=== PATIENT | male | born 1965 | race Caucasian/White ===

== ENCOUNTER 2016-04-15 16:02 | Inpatient (IN) | payer OTHER ==
[~2016-04-15] VITALS: Ht 195.6 cm; Wt 163.5 kg
[2016-04-15 16:06] VITALS: BP 133/60; PULSE 83; RESP 20; TEMP 98.3; O2SAT 93
[2016-04-15] MEDS ORDERED: SODIUM CHLOR 0.9% 1000 ML INJ 1,000 ML IV ONE (16:15)
[2016-04-15] MEDS ORDERED: MORPHINE SULFATE 8 MG/ML INJ IV PUSH ONE (16:15)
[2016-04-15] MEDS ORDERED: LISI20TA3 PO (16:16)
[2016-04-15] MEDS ORDERED: METF1000 PO (16:16)
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
[2016-04-15 16:45] LABS: AUTOMATED NEUTROPHIL # 4.9 TH/MM3 (1.8-7.7); BASOPHIL % 0.3 % (0.0-2.0); EOSINOPHIL # 0.3 TH/MM3 (0-0.4); EOSINOPHIL % 2.4 % (0.0-4.0); HEMATOCRIT 38.8 % (39.0-51.0); HEMO FLAGS DIFF FINAL; LYMPH % 41.7 % (9.0-44.0); LYMPHOCYTE # 4.3 TH/MM3 (1.0-4.8); MEAN CELL VOLUME 83.7 FL (80.0-100.0); MEAN CORPUSCULAR HEMOGLOBIN 28.5 PG (27.0-34.0); MONO % 8.1 % (0.0-8.0); NEUT % 47.5 % (16.0-70.0); PLATELET COUNT 179 TH/MM3 (150-450); RED BLOOD COUNT 4.64 MIL/MM3 (4.50-5.90); RED CELL DISTRIBUTION WIDTH 15.1 % (11.6-17.2); WHITE BLOOD COUNT 10.4 TH/MM3 (4.0-11.0)
[2016-04-15] MEDS ORDERED: IOHEXOL 350 MG/ML 10 ML VIAL (for RAD DIAG) IV ONE (17:01)
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
[2016-04-15 17:23] LABS: BICARBONATE 28.7 MEQ/L (21.0-32.0); POTASSIUM 3.4 MEQ/L (3.5-5.1)
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
[2016-04-15] MEDS ORDERED: HYDROmorphone HCL PF 1 MG/ML VIAL IVS ONE (17:45)
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
[2016-04-15 18:42] VITALS: BP 126/58; PULSE 100; RESP 20; O2SAT 96
[2016-04-15] MEDS ORDERED: LIDOCAINE 1%/EPINEPHrine 1:100,000 SOLN 20 ML VIAL INFIL ONE (18:45)
--- NOTE | 2016-04-15 19:13 | PD ---
Physical Exam Narrative I was asked by Dr. San to repair patient's laceration. Please see his documentation for full H&P. Data Data Last Documented VS Vital Signs Date Time Temp Pulse Resp B/P Pulse Ox O2 Delivery O2 Flow Rate FiO2 04/15/16 16:30 20 04/15/16 16:06 98.3 83 133/60 93 Orders Complete Blood Count With Diff (04/15/16 16:12) Basic Metabolic Panel (Bmp) (04/15/16 16:12) Ct Brain W/O Iv Contrast(Rout) (04/15/16 ) Ct Cerv Spine W/O Contrast (04/15/16 ) Ct Thorax/ Chest W Iv Contrast (04/15/16 ) Ct Abd/Pel W Iv Contrast(Rout) (04/15/16 ) Iv Access Insert/Monitor (04/15/16 16:12) Morphine Inj (Morphine Inj) (04/15/16 16:15) Sodium Chlor 0.9% 1000 Ml Inj (Ns 1000 M (04/15/16 16:15) Knee, Complete (4vws) (04/15/16 ) Tibia/Fibula (Ap/Lat) (04/15/16 ) Wrist, Limited (Ap&Lat) (04/15/16 ) Hydromorphone Pf Inj (Dilaudid Pf Inj) (04/15/16 17:45) Admit Order (Ed Use Only) (04/15/16 ) Labs Laboratory Tests Test 04/15/16 16:30 White Blood Count 10.4 TH/MM3 Red Blood Count 4.64 MIL/MM3 Hemoglobin 13.2 GM/DL Hematocrit 38.8 % Mean Corpuscular Volume 83.7 FL Mean Corpuscular Hemoglobin 28.5 PG Mean Corpuscular Hemoglobin 34.0 % Concent Red Cell Distribution Width 15.1 % Platelet Count 179 TH/MM3 Mean Platelet Volume 8.0 FL Neutrophils (%) (Auto) 47.5 % Lymphocytes (%) (Auto) 41.7 % Monocytes (%) (Auto) 8.1 % Eosinophils (%) (Auto) 2.4 % Basophils (%) (Auto) 0.3 % Neutrophils # (Auto) 4.9 TH/MM3 Lymphocytes # (Auto) 4.3 TH/MM3 Monocytes # (Auto) 0.8 TH/MM3 Eosinophils # (Auto) 0.3 TH/MM3 Basophils # (Auto) 0.0 TH/MM3 CBC Comment DIFF FINAL Differential Comment Sodium Level 139 MEQ/L Potassium Level 3.4 MEQ/L Chloride Level 102 MEQ/L Carbon Dioxide Level 28.7 MEQ/L Anion Gap 8 MEQ/L Blood Urea Nitrogen 14 MG/DL Creatinine 1.03 MG/DL Estimat Glomerular Filtration 77 ML/MIN Rate Random Glucose 123 MG/DL Calcium Level 8.8 MG/DL MDM Supervised Visit with CHAD: No Procedures Procedure Narrative LACERATION REPAIR LOCATION: Left occipital LENGTH: Approximately 2 cm in total length NUMBER OF STITCHES/LAWRENCE: 5 lawrence REPAIR: Verbal consent was obtained. The area of the laceration was cleaned and prepped. Patient refused lidocaine. The wound was copiously irrigated and explored without evidence of foreign body, bony involvement, ligament injury, tendon injury, or neurovascular injury. The wound was closed using lawrence. This was a single layer repair. A sterile dressing was applied by nurse. The patient was advised to keep the affected area as clean and dry as possible using soap and water. There were no complications. Patient tolerated the procedure well. Diagnosis Primary Impression: Multiple rib fractures Qualified Code: S22.42XA - Closed fracture of multiple ribs of left side, initial encounter Additional Impressions: Fracture of right distal radius Qualified Code: S52.501A - Closed fracture of distal end of right radius, unspecified fracture morphology, initial encounter Left fibular fracture Qualified Code: S82.832A - Other closed fracture of proximal end of left fibula, initial encounter Gato Dickinson Apr 15, 2016 19:13
[2016-04-15] MEDS ORDERED: ACETAMINOPHEN/HYDROcodone 325 MG/5 MG TAB PO PRN (19:15)
[2016-04-15] MEDS ORDERED: ONDANSETRON HCL 4 MG/2 ML VIAL IV PRN (19:15)
[2016-04-15] MEDS ORDERED: MISCELLANEOUS NURSING INFORMATION XX SCH (19:15)
[2016-04-15] MEDS ORDERED: ENALAPRILAT 1.25 MG/ML VIAL IV PRN (19:15)
[2016-04-15] MEDS ORDERED: ACETAMINOPHEN 325 MG TAB PO PRN (19:15)
[2016-04-15] MEDS ORDERED: NALOXONE HCL 0.4 MG/ML AMP IV PRN (19:15)
[2016-04-15] MEDS ORDERED: CHLORHEXIDINE GLUCONATE 2 % 1 PACK (2 CLOTHS) TOP PRN (19:15)
[2016-04-15 19:30] VITALS: BP 148/64; PULSE 102; RESP 20; O2SAT 97
[2016-04-15] MEDS: PANTOPRAZOLE SODIUM 40 MG VIAL IVP SCH (20:39)
[2016-04-15] MEDS: ACETAMINOPHEN/HYDROcodone 325 MG/5 MG TAB PO PRN (20:40)
[2016-04-15] MEDS: SODIUM CHLOR 0.9% 1000 ML INJ 1,000 ML IV SCH (20:40)
[2016-04-15] MEDS ORDERED: DOCUSATE SODIUM 100 MG CAP PO SCH (21:00)
[2016-04-15] MEDS: BACITRACIN TOP OINT 15 GM TUBE TOP SCH (21:00)
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
[2016-04-15 21:11] VITALS: BP 130/68; PULSE 101; RESP 16; TEMP 99.7; O2SAT 95
[2016-04-15] MEDS: MORPHINE SULFATE 30 MG/30 ML PCA IV SCH (21:50)
[2016-04-15] MEDS ORDERED: PCA - TOTAL MG MORPHINE DELIVERED PER SHIFT SCH (22:00)
[2016-04-15] MEDS ORDERED: DEXTROSE 50% IN WATER 50 ML VIAL(D50) IV PUSH PRN (23:15)
[2016-04-15] MEDS ORDERED: GLUCAGON 1 MG/ML VIAL OTHER PRN (23:15)
[2016-04-16 00:01] VITALS: BP 141/61; PULSE 101; RESP 16; TEMP 100; O2SAT 99
[2016-04-16] MEDS: CHLORHEXIDINE GLUCONATE 2 % 1 PACK (2 CLOTHS) TOP SCH (04:00)
[2016-04-16 04:07] VITALS: BP 130/70; PULSE 96; RESP 16; TEMP 99.6; O2SAT 94
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
[2016-04-16 05:57] LABS: AUTOMATED NEUTROPHIL # 4.7 TH/MM3 (1.8-7.7); BASOPHIL % 0.2 % (0.0-2.0); EOSINOPHIL # 0.1 TH/MM3 (0-0.4); EOSINOPHIL % 1.5 % (0.0-4.0); HEMATOCRIT 36.7 % (39.0-51.0); HEMO FLAGS DIFF FINAL; LYMPH % 30.6 % (9.0-44.0); LYMPHOCYTE # 2.5 TH/MM3 (1.0-4.8); MEAN CELL VOLUME 84.1 FL (80.0-100.0); MEAN CORPUSCULAR HEMOGLOBIN 28.4 PG (27.0-34.0); MEAN CORPUSCULAR HGB CONC 33.7 % (32.0-36.0); MONO % 9.8 % (0.0-8.0); NEUT % 57.9 % (16.0-70.0); PLATELET COUNT 132 TH/MM3 (150-450); RED BLOOD COUNT 4.36 MIL/MM3 (4.50-5.90); WHITE BLOOD COUNT 8.1 TH/MM3 (4.0-11.0)
[2016-04-16] MEDS: INSULIN NovoLIN REGULAR SUPPLEMENTAL SCALE SQ SCH ×4 (06:00→20:26)
[2016-04-16 06:08] LABS: BICARBONATE 29.6 MEQ/L (21.0-32.0)
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
[2016-04-16 08:00] VITALS: BP 136/69; PULSE 86; RESP 16; TEMP 98.6; O2SAT 98
[2016-04-16 08:27] VITALS: O2SAT 96
[2016-04-16] MEDS ORDERED: SODIUM CHLORID 0.9% 500 ML IV SCH (08:45)
[2016-04-16] MEDS ORDERED: METOPROLOL TARTRATE 25 MG TAB PO PRN (08:45)
[2016-04-16] MEDS ORDERED: INSULIN HUMAN REGULAR 1,000 UNITS/10 ML VIAL SQ PRN (08:45)
[2016-04-16] MEDS: MORPHINE SULFATE 30 MG/30 ML PCA IV SCH (09:04)
[2016-04-16] MEDS ORDERED: HYDR-3366 PO (09:31)
[2016-04-16] MEDS ORDERED: GENTAMICIN SULFATE 80 MG/2 ML VIAL ONE (09:35)
[2016-04-16] MEDS ORDERED: VANCOMYCIN HCL 1000 MG VIAL ONE (09:35)
[2016-04-16] MEDS ORDERED: ceFAZolin INJ 1,000 MG VIAL ONE (09:35)
[2016-04-16] MEDS ORDERED: fentaNYL CITRATE 250 MCG/5 ML AMP ONE (09:39)
[2016-04-16] MEDS ORDERED: ACETAMINOPHEN 1000 MG/100 ML VIAL IV ONE (09:39)
[2016-04-16] MEDS ORDERED: MIDAZOLAM HCL 2 MG/2 ML VIAL ONE (09:39)
[2016-04-16] MEDS ORDERED: FAMOTIDINE 20 MG/2 ML VIAL ONE (09:40)
[2016-04-16] MEDS ORDERED: MORPHINE SULFATE 4 MG/ML INJ IV PUSH PRN (10:15)
[2016-04-16] MEDS ORDERED: ACETAMINOPHEN/HYDROcodone 325 MG/10 MG TAB PO PRN (10:15)
[2016-04-16] MEDS ORDERED: BUPIVACAINE/EPINEPHRINE 0.25% PF 30 ML VIAL ONE (11:10)
--- NOTE | 2016-04-16 11:34 | PD.OP ---
cc: Louie Foote MD Operative Report Date of Surgery: Apr 16, 2016 Preoperative Diagnosis: Comminuted right distal radius intra-articular fracture Left fibula shaft fracture Postoperative Diagnosis: Procedure: Open reduction internal fixation comminuted right distal radius fracture Anesthesia: Gen. Surgeon: Louie Foote Die Maker Trim(s): BRANDEN Batres PA-C The surgical procedure was assisted by my physician home based assistant. My P.A. presence was necessary throughout this case for the manipulation and positioning of the surgical extremity. My P.A. was assisting me throughout the duration of this procedure. The skill set of a physician home based assistant was medically necessary to complete this procedure. During the surgical case the surgical instrument repair specialist was working at the back table and the physician home based assistant was directly assisting me. Operation and Findings: Patient was seen and evaluated preoperatively and found to have a displaced comminuted intra-articular right distal radius fracture. Informed consent was obtained after detailed discussion of risk and benefits including bleeding, infection, injury to arteries, nerves, and blood vessels, weakness and numbness of hand, and tendon rupture. Informed consent was obtained. Patient received IV antibiotics prior to incision. Timeout procedure was performed. Operative extremity was prepped with alcohol followed by Hibiclens and draped usual sterile fashion. A standard volar approach to the distal radius was utilized. A 5 inch incision was made over the FCR tendon. Tendon sheath was opened. Pronator quadratus was elevated up. The fracture site was now visualized. The fracture did have intra-articular extension with comminution of the articular surface and metaphyseal region. Traction was applied. The articular surface was reduced. Each of the fragments was manipulated to achieve reduction. The metaphyseal fragments were also reduced. Multiple K wires and fracture tenaculums were used to aid in reduction. Fracture fragments were manipulated to achieve excellent reduction. K wires were used to hold provisional fixation. Fluoroscopy confirmed appropriate alignment of fracture. A Synthes 2 column variable angle distal radius plate was selected. Plate was provisionally fixed to bone with K wires. 2.7 and 2.4 cortical screws were used to compress plate to bone. Fluoroscopy confirmed appropriate alignment of fracture with well- placed hardware. Multiple 2.4 locking screws were now placed distally. Screws were predrilled and measured for appropriate length. 2 additional screws were placed into the shaft. K wires were removed. Final fluoroscopy revealed excellent of fracture with well-placed hardware. The wound was thoroughly irrigated with sterile saline. Subcutaneous tissue was closed with 3-0 Vicryl and skin was closed with 3-0 nylon. Sterile dressings were applied with Xeroform, 4 x 4, soft roll, and a well padded volar splint. Patient was awakened and transferred to recovery room in stable condition Louie Foote MD Apr 16, 2016 11:34
[2016-04-16] MEDS ORDERED: DO NOT ADM ANY ANTICOAGULANT DRUGS XX PRN (12:15)
--- NOTE | 2016-04-16 12:25 | RADRPT ---
EXAM DATE/TIME: 04/16/2016 11:22 [facility] COMPARISON: WRIST RIGHT LIMITED(AP & LAT), April 15, 2016, 16:49. INDICATIONS : Surgical repair. MEDICAL HISTORY : None. SURGICAL HISTORY : None. ENCOUNTER: Initial ACUITY: 1 day PAIN SCORE: Non-responsive. LOCATION: Right wrist. FINDINGS: 2 spot fluoroscopic images of the right wrist obtained in the operating room following a procedure de monstrates placement of a volar distal radial side plate with multiple interlocking screws and a sing le lag screw. Fracture lines remain visualized but there is improved anatomic alignment. CONCLUSION: Improved anatomic alignment following right distal radius ORIF. Jhonny Daugherty MD on April 16, 2016 at 12:23 Board Certified Radiologist. This report was verified electronically.
[2016-04-16] MEDS ORDERED: *LABETALOL HCL 100 MG/20 ML VIAL PERIprocedural Use ONLY ONE (12:39)
[2016-04-16] MEDS ORDERED: *morphine SULFATE 8 MG/ML PERIprocedure ONLY ONE (12:52)
[2016-04-16] MEDS ORDERED: NORMOSOL R INJ 1,000 ML IV ONE (13:53)
[2016-04-16] MEDS ORDERED: NEOSTIGMINE METHYLSULFATE 10 MG/10 ML VIAL IV PUSH ONE (13:53)
[2016-04-16] MEDS ORDERED: ONDANSETRON HCL 4 MG/2 ML VIAL IV PUSH ONE (13:53)
[2016-04-16] MEDS ORDERED: PROPOFOL 200 MG/20 ML AMP IV ONE (13:53)
[2016-04-16] MEDS ORDERED: NON-FORMULARY DRUG (Lisinopril-Hctz 1 TAB) PO SCH (15:00)
--- NOTE | 2016-04-16 15:04 | HHI.PR ---
Subjective Subjective Notes S/P ORIF RIGHT radius Still painful, complains of paresthesias. Objective Vitals/I&O Vital Signs Date Time Temp Pulse Resp B/P Pulse Ox O2 Delivery O2 Flow Rate FiO2 04/16/16 13:30 84 16 168/75 96 Nasal Cannula 3 04/16/16 12:20 98.3 Labs Laboratory Tests Test 04/15/16 04/16/16 16:30 05:33 White Blood Count 10.4 8.1 Red Blood Count 4.64 4.36 Hemoglobin 13.2 12.4 Hematocrit 38.8 36.7 Mean Corpuscular Volume 83.7 84.1 Mean Corpuscular Hemoglobin 28.5 28.4 Mean Corpuscular Hemoglobin 34.0 33.7 Concent Red Cell Distribution Width 15.1 15.0 Platelet Count 179 132 Mean Platelet Volume 8.0 7.7 Neutrophils (%) (Auto) 47.5 57.9 Lymphocytes (%) (Auto) 41.7 30.6 Monocytes (%) (Auto) 8.1 9.8 Eosinophils (%) (Auto) 2.4 1.5 Basophils (%) (Auto) 0.3 0.2 Neutrophils # (Auto) 4.9 4.7 Lymphocytes # (Auto) 4.3 2.5 Monocytes # (Auto) 0.8 0.8 Eosinophils # (Auto) 0.3 0.1 Basophils # (Auto) 0.0 0.0 CBC Comment DIFF FINAL DIFF FINAL Differential Comment Sodium Level 139 140 Potassium Level 3.4 4.0 Chloride Level 102 103 Carbon Dioxide Level 28.7 29.6 Anion Gap 8 7 Blood Urea Nitrogen 14 12 Creatinine 1.03 0.89 Estimat Glomerular Filtration 77 91 Rate Random Glucose 123 143 Calcium Level 8.8 8.6 Narrative Exam GENERAL: 51-year-old well-nourished, well developed male lying in bed. SKIN: Warm and dry. HEAD: Normocephalic. EYES: PERRL. ENT: No nasal bleeding or discharge. Mucous membranes pink and moist. NECK: Trachea midline. No JVD. CARDIOVASCULAR: Regular rate and rhythm. RESPIRATORY: No accessory muscle use. Lungs clear to auscultation. Breath sounds equal bilaterally. GASTROINTESTINAL: Abdomen soft, non-tender, nondistended. + BS. MUSCULOSKELETAL: Extremities without cyanosis, or edema. No obvious deformities. Right arm soft splint in place. NEUROLOGICAL: Awake and alert. Normal speech. A/P Assessment and Plan INJURIES: Left rib fxs RIGHT comminuted distal radius fx LEFT closed fibula fx (non- op) 04/16: ORIF RIGHT radius PMHx: DM, sleep apnea Diet: ADA Pulmonary: IS, encourage patient use. Pain: [place], Morphine IV. Morphine EDUCATIONAL SPEECH LANGUAGE CLINICIAN. Added Neurontin. Activity: OOB (WBAT LLE, RUE NWB). PT OT ordered. IV: NS@ 100 GI: IV Protonix Bowel: Pericolace, MOM. No BM yet. DVT: SCD Resumed home lisinoprilHCTZ. BP elevated, will monitor. Plan of care discussed with patient at bedside. Attending Statement The exam, history, and the medical decision-making described in the above note were completed with the assistance of the mid-level provider. I reviewed and agree with the findings presented. I attest that I had a [id number] encounter with the patient on the same day, and personally performed and documented my assessment and findings in the medical record. Khurram Dobbs Apr 16, 2016 15:04 Sussy Vasquez MD Apr 20, 2016 16:41
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
[2016-04-16 16:00] VITALS: BP 130/59; PULSE 82; RESP 16; TEMP 97.9; O2SAT 96
[2016-04-16] MEDS ORDERED: HYDROCHLOROTHIAZIDE 25 MG TAB PO SCH (16:00)
[2016-04-16] MEDS ORDERED: LISINOPRIL 20 MG TAB PO SCH (16:00)
[2016-04-16] MEDS: GABAPENTIN 300 MG CAP PO SCH (17:06)
[2016-04-16 20:00] VITALS: BP 134/67; PULSE 80; RESP 16; TEMP 97; O2SAT 96
[2016-04-16] MEDS: LISINOPRIL 20 MG TAB PO SCH (20:26)
[2016-04-16] MEDS: PANTOPRAZOLE SODIUM 40 MG VIAL IVP SCH (20:26)
[2016-04-16] MEDS: DOCUSATE SODIUM 50 MG/SENNA 8.6 MG TAB PO SCH (20:27)
[2016-04-16] MEDS: diphenhydrAMINE HCL 25 MG CAP PO PRN (20:27)
[2016-04-16] MEDS: HYDROCHLOROTHIAZIDE 25 MG TAB PO SCH (20:27)
[2016-04-16] MEDS: MAGNESIUM HYDROXIDE SUSP 30 ML CUP PO PRN (20:28)
[2016-04-16] MEDS: ACETAMINOPHEN/HYDROcodone 325 MG/5 MG TAB PO PRN (20:28)
[2016-04-16] MEDS: BACITRACIN TOP OINT 15 GM TUBE TOP SCH (20:30)
[2016-04-17] VITALS (7 sets, daily range): BP systolic 111–144; BP diastolic 53–71; PULSE 72–97; RESP 15–19; TEMP 96.8–98.8; O2SAT 92–96
[2016-04-17] MEDS: ACETAMINOPHEN/HYDROcodone 325 MG/5 MG TAB PO PRN ×6 (00:27→22:03)
[2016-04-17] MEDS: CHLORHEXIDINE GLUCONATE 2 % 1 PACK (2 CLOTHS) TOP SCH ×2 (04:00→22:04)
[2016-04-17] MEDS: INSULIN NovoLIN REGULAR SUPPLEMENTAL SCALE SQ SCH ×4 (06:32→22:04)
--- NOTE | 2016-04-17 06:56 | PD.ORT.PN ---
Subjective Subjective Remarks Pain controlled. His ribs are continuing to bother him Objective Vitals Vital Signs Date Time Temp Pulse Resp B/P Pulse Ox O2 Delivery O2 Flow Rate FiO2 04/17/16 04:00 97.9 73 16 111/61 95 04/17/16 00:36 97.5 80 16 144/69 95 04/17/16 00:35 97.5 80 15 144/69 95 04/16/16 20:00 97.0 80 16 134/67 96 04/16/16 20:00 Nasal Cannula 2.00 04/16/16 16:00 97.9 82 16 130/59 96 04/16/16 13:30 84 16 168/75 96 Nasal Cannula 3 04/16/16 13:15 80 16 168/88 96 Nasal Cannula 3 04/16/16 13:00 82 16 177/85 95 Nasal Cannula 3 04/16/16 12:45 80 16 179/88 94 Nasal Cannula 3 04/16/16 12:30 84 16 170/87 93 Nasal Cannula 3 04/16/16 12:20 98.3 90 16 179/87 94 Nasal Cannula 3 04/16/16 08:27 96 Nasal Cannula 1.00 04/16/16 08:00 98.6 86 16 136/69 98 I/O 04/16/16 04/16/16 04/16/16 04/17/16 04/17/16 04/17/16 07:00 15:00 23:00 07:00 15:00 23:00 Intake Total 0 ml 50 ml 720 ml 480 ml Output Total 400 ml 800 ml 800 ml Balance -400 ml 50 ml -80 ml -320 ml Intake Oral 0 ml 720 ml 480 ml IV Total 50 ml Output Urine Total 400 ml 800 ml 800 ml # Voids 1 # Bowel Movements 0 0 Result Diagram: 04/16/16 0533 04/16/16 0533 Imaging Last 72 hours Impressions Wrist X-Ray 04/15/16 0000 Signed Impressions: Service Date/Time: Friday, April 15, 2016 16:49 - CONCLUSION: Comminuted fracture of the distal radius. Jhonny Mcneill MD Tibia/Fibula X-Ray 04/15/16 0000 Signed Impressions: Service Date/Time: Friday, April 15, 2016 16:39 - CONCLUSION: 1. Definite mid fibular fracture. 2. Questionable proximal tibial fracture. This could be further evaluated with a CT examination. Jhonny Mcneill MD Knee X-Ray 04/15/16 Signed Impressions: Service Date/Time: Friday, April 15, 2016 16:37 - CONCLUSION: No acute abnormality is seen. Jhonny Mcneill MD Head CT 04/15/16 Signed Impressions: Service Date/Time: Friday, April 15, 2016 16:56 - CONCLUSION: 1. No acute intracranial abnormality. 2. Fracturing of the medial aspect of the right maxilla with a foreign metallic density within the right maxilla. 3. Increased density seen throughout the right maxillary sinus and in the right ethmoid air cells. Jhonny Mcneill MD Chest CT 04/15/16 Signed Impressions: Service Date/Time: Friday, April 15, 2016 17:01 - CONCLUSION: Left-sided rib fractures. Jhonny Mcneill MD Cervical Spine CT 04/15/16 Signed Impressions: Service Date/Time: Friday, April 15, 2016 17:01 - CONCLUSION: Small bony fragment seen posterior to the C7 spinous process. Fracture in this region can have this appearance. However, the posterior aspect of the main portion of the C7 spinous process appears well-corticated suggesting this is likely chronic. The remaining aspects of the cervical spine are negative. Jhonny Mcneill MD Ankle X-Ray 04/15/16 Signed Impressions: Service Date/Time: Friday, April 15, 2016 20:04 - CONCLUSION: No definite fracture is seen although there is a small bony density seen immediately posterior to the talus which could represent pre-existing hypertrophic change versus a minimal area of fracturing. Jhonny Mcneill MD Abdomen/Pelvis CT 04/15/16 Signed Impressions: Service Date/Time: Friday, April 15, 2016 17:01 - CONCLUSION: No acute intra-abdominal or pelvic abnormality seen. Jhonny Mcneill MD Objective Remarks Left upper extremity: Full range of motion and neurovascularly intact Right upper extremity: No pain with shoulder motion. Clean long-arm splint intact Distally intact sensation of the radial ulnar and median nerve distributions with good capillary refills. He is able to fully extend and flex all his fingers. Right lower extremity: Full range of motion neurovascularly intact Left lower extremity: No pain with hip range of motion. Knee range of motion is from 0 to 120 with minimal tenderness. He is a previous meniscus tear. No changes in pain. Tenderness to palpation over mid shaft fibula. No pain with ankle range of motion. No tenderness over syndesmosis. Good capillary refills distally and intact pulses Assessment & Plan Assessment and Plan 1-Comminuted right distal radius fracture Maintain splint and nonweightbearing Sling when out of bed 2-left midshaft fibula fracture Weightbearing as tolerated left lower extremity PT to try using hemiwalker for ambulation. If having difficulty getting around on a hemiwalker please contact me. Would like to avoid using a platform walker due to severity of wrist fracture orthopedically cleared for discharge when safe with physical therapy. He will follow-up with orthopedics at home in 2 weeks SORAYA MCGREGOR PA-C Apr 17, 2016 06:56
[2016-04-17] MEDS ORDERED: WALKER/FOLDING1 MIS (07:00)
[2016-04-17] MEDS: GABAPENTIN 300 MG CAP PO SCH ×3 (08:43→17:52)
[2016-04-17] MEDS: DOCUSATE SODIUM 50 MG/SENNA 8.6 MG TAB PO SCH ×2 (08:43→22:02)
[2016-04-17] MEDS: MAGNESIUM HYDROXIDE SUSP 30 ML CUP PO PRN (08:44)
[2016-04-17] MEDS: SODIUM CHLORIDE 0.9% FLUSH 5 ML FLUSH IVF PRN (08:44)
[2016-04-17] MEDS: LACTATED RINGER'S 1000 ML IV SCH (08:45)
[2016-04-17] MEDS: diphenhydrAMINE HCL 25 MG CAP PO PRN (08:47)
[2016-04-17] MEDS: BACITRACIN TOP OINT 15 GM TUBE TOP SCH ×2 (08:53→21:00)
[2016-04-17] MEDS ORDERED: MILKSUS PO (09:52)
[2016-04-17] MEDS ORDERED: SENN1TAB PO (09:52)
[2016-04-17] MEDS: SODIUM CHLOR 0.9% 1000 ML INJ 1,000 ML IV SCH ×2 (12:00→22:00)
[2016-04-17] MEDS ORDERED: CYCL1TAB29 PO (13:25)
[2016-04-17] MEDS ORDERED: HYDR-3516 PO (13:25)
[2016-04-17] MEDS: LORATADINE 10 MG TAB PO SCH (13:46)
[2016-04-17] MEDS: CYCLOBENZAPRINE HCL 10 MG TAB PO SCH ×2 (13:46→22:02)
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
[2016-04-17] MEDS ORDERED: BEDSIDE COMMODE1 MI1 (16:45)
[2016-04-17] MEDS ORDERED: WHEEMIS3 (16:46)
[2016-04-17] MEDS: ENOXAPARIN SODIUM 40 MG/0.4 ML SYRINGE SQ SCH (18:30)
[2016-04-17] MEDS: LISINOPRIL 20 MG TAB PO SCH (22:03)
[2016-04-17] MEDS: PANTOPRAZOLE SOD 40 MG DELAYED RELEASE TAB PO SCH (22:03)
[2016-04-17] MEDS: HYDROCHLOROTHIAZIDE 25 MG TAB PO SCH (22:03)
[2016-04-18 00:59] VITALS: BP 137/72; PULSE 94; RESP 18; TEMP 99.2; O2SAT 91
[2016-04-18] MEDS: ACETAMINOPHEN/HYDROcodone 325 MG/5 MG TAB PO PRN ×5 (02:47→22:38)
[2016-04-18] MEDS: CYCLOBENZAPRINE HCL 10 MG TAB PO SCH ×3 (06:00→21:42)
[2016-04-18] MEDS: INSULIN NovoLIN REGULAR SUPPLEMENTAL SCALE SQ SCH ×4 (06:20→21:43)
--- NOTE | 2016-04-18 06:48 | PD.ORT.PN ---
Subjective Subjective Remarks POD 2 s/p ORIF right distal radius fx s/p nonop left fibula shaft fx doing well. out of bed with hemiwalker yesterday. mild discomfort. reports pain in right thigh Objective Vitals Vital Signs Date Time Temp Pulse Resp B/P Pulse Ox O2 Delivery O2 Flow Rate FiO2 04/18/16 00:59 99.2 94 18 137/72 91 04/17/16 20:59 98.8 97 19 139/71 94 04/17/16 16:00 97.5 87 18 123/57 93 04/17/16 12:00 96.8 72 18 113/53 96 04/17/16 08:35 Room Air 04/17/16 08:00 97.6 72 18 116/55 92 I/O 04/17/16 04/17/16 04/17/16 04/18/16 04/18/16 04/18/16 07:00 15:00 23:00 07:00 15:00 23:00 Intake Total 480 ml 960 ml 960 ml Output Total 800 ml Balance -320 ml 960 ml 960 ml Intake Oral 480 ml 960 ml 960 ml Output Urine Total 800 ml # Voids 5 3 # Bowel Movements 0 0 0 Result Diagram: 04/16/16 0533 04/16/16 0533 Imaging Last 72 hours Impressions Wrist X-Ray 04/15/16 0000 Signed Impressions: Service Date/Time: Friday, April 15, 2016 16:49 - CONCLUSION: Comminuted fracture of the distal radius. Jhonny Mcneill MD Tibia/Fibula X-Ray 04/15/16 0000 Signed Impressions: Service Date/Time: Friday, April 15, 2016 16:39 - CONCLUSION: 1. Definite mid fibular fracture. 2. Questionable proximal tibial fracture. This could be further evaluated with a CT examination. Jhonny Mcneill MD Knee X-Ray 04/15/16 0000 Signed Impressions: Service Date/Time: Friday, April 15, 2016 16:37 - CONCLUSION: No acute abnormality is seen. Jhonny Mcneill MD Head CT 04/15/16 0000 Signed Impressions: Service Date/Time: Friday, April 15, 2016 16:56 - CONCLUSION: 1. No acute intracranial abnormality. 2. Fracturing of the medial aspect of the right maxilla with a foreign metallic density within the right maxilla. 3. Increased density seen throughout the right maxillary sinus and in the right ethmoid air cells. Jhonny Mcneill MD Chest CT 04/15/16 0000 Signed Impressions: Service Date/Time: Friday, April 15, 2016 17:01 - CONCLUSION: Left-sided rib fractures. Jhonny Mcneill MD Cervical Spine CT 04/15/16 0000 Signed Impressions: Service Date/Time: Friday, April 15, 2016 17:01 - CONCLUSION: Small bony fragment seen posterior to the C7 spinous process. Fracture in this region can have this appearance. However, the posterior aspect of the main portion of the C7 spinous process appears well-corticated suggesting this is likely chronic. The remaining aspects of the cervical spine are negative. Jhonny Mcneill MD Ankle X-Ray 04/15/16 Signed Impressions: Service Date/Time: Friday, April 15, 2016 20:04 - CONCLUSION: No definite fracture is seen although there is a small bony density seen immediately posterior to the talus which could represent pre-existing hypertrophic change versus a minimal area of fracturing. Jhonny Mcneill MD Abdomen/Pelvis CT 04/15/16 Signed Impressions: Service Date/Time: Friday, April 15, 2016 17:01 - CONCLUSION: No acute intra-abdominal or pelvic abnormality seen. Jhonny Mcneill MD Objective Remarks RUE: +sugar tong splint. intact. NVI with good motion of fingers LLE: full motion. no pain. NVI RLE: noted bruising on posterior thigh. slightly tender to touch. NVI distally Assessment & Plan Assessment and Plan 1-Comminuted right distal radius fracture s/p ORIF - POD 2 Maintain splint and nonweightbearing Sling when out of bed 2-left midshaft fibula fracture - nonop Weightbearing as tolerated left lower extremity 3-Right thigh contusion -WBAT BLE -NWB right arm -ortho cleared for DC f/u ortho 2 weeks Delgado You Apr 18, 2016 06:48
[2016-04-18 08:00] VITALS: BP 131/59; PULSE 84; RESP 18; TEMP 97.9; O2SAT 94
[2016-04-18] MEDS: SODIUM CHLOR 0.9% 1000 ML INJ 1,000 ML IV SCH ×2 (08:00→18:00)
[2016-04-18] MEDS ORDERED: LACTULOSE SYRUP 20 GM/30 ML CUP PO ONE (08:15)
[2016-04-18] MEDS: LACTATED RINGER'S 1000 ML IV SCH (08:45)
[2016-04-18] MEDS: DOCUSATE SODIUM 50 MG/SENNA 8.6 MG TAB PO SCH ×2 (09:26→21:42)
[2016-04-18] MEDS: LORATADINE 10 MG TAB PO SCH (09:27)
[2016-04-18] MEDS: GABAPENTIN 300 MG CAP PO SCH ×3 (09:27→18:39)
[2016-04-18] MEDS: BACITRACIN TOP OINT 15 GM TUBE TOP SCH ×2 (09:32→21:00)
[2016-04-18 12:00] VITALS: BP 140/72; PULSE 84; RESP 17; TEMP 98; O2SAT 94
[2016-04-18] MEDS: metFORMIN HCL 500 MG TAB PO SCH ×2 (12:30→18:39)
[2016-04-18] MEDS ORDERED: diphenhydrAMINE HCL 50 MG CAP PO PRN (14:00)
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
[2016-04-18 16:00] VITALS: BP 130/62; PULSE 82; RESP 18; TEMP 97.8; O2SAT 95
[2016-04-18] MEDS: ENOXAPARIN SODIUM 40 MG/0.4 ML SYRINGE SQ SCH (18:38)
[2016-04-18 20:40] VITALS: BP 127/58; PULSE 96; RESP 18; TEMP 96.2; O2SAT 95
[2016-04-18] MEDS: PANTOPRAZOLE SOD 40 MG DELAYED RELEASE TAB PO SCH (21:42)
[2016-04-18] MEDS: HYDROCHLOROTHIAZIDE 25 MG TAB PO SCH (21:42)
[2016-04-18] MEDS: LISINOPRIL 20 MG TAB PO SCH (21:42)
[2016-04-18] MEDS: SODIUM CHLORIDE 0.9% FLUSH 5 ML FLUSH IVF PRN (21:43)
[2016-04-18] MEDS: MAGNESIUM HYDROXIDE SUSP 30 ML CUP PO PRN (21:43)
[2016-04-19 00:25] VITALS: BP 144/63; PULSE 89; RESP 18; TEMP 98.4; O2SAT 92
[2016-04-19] MEDS: ACETAMINOPHEN/HYDROcodone 325 MG/5 MG TAB PO PRN ×5 (03:44→22:32)
[2016-04-19] MEDS: SODIUM CHLOR 0.9% 1000 ML INJ 1,000 ML IV SCH (04:00)
[2016-04-19] MEDS: CHLORHEXIDINE GLUCONATE 2 % 1 PACK (2 CLOTHS) TOP SCH ×2 (04:00→21:04)
[2016-04-19] MEDS: CYCLOBENZAPRINE HCL 10 MG TAB PO SCH ×3 (06:00→21:03)
[2016-04-19] MEDS: INSULIN NovoLIN REGULAR SUPPLEMENTAL SCALE SQ SCH ×4 (06:43→21:02)
--- NOTE | 2016-04-19 06:53 | PD.ORT.PN ---
Subjective Subjective Remarks POD 3 s/p ORIF right distal radius fx s/p nonop left fibula shaft fx doing well. out of bed with hemiwalker yesterday. mild discomfort. reports pain in right thigh Objective Vitals Vital Signs Date Time Temp Pulse Resp B/P Pulse Ox O2 Delivery O2 Flow Rate FiO2 04/19/16 00:25 98.4 89 18 144/63 92 04/18/16 20:40 96.2 96 18 127/58 95 04/18/16 19:28 Room Air 04/18/16 16:00 97.8 82 18 130/62 95 04/18/16 12:00 98.0 84 17 140/72 94 04/18/16 08:00 97.9 84 18 131/59 94 I/O 04/18/16 04/18/16 04/18/16 04/19/16 04/19/16 04/19/16 07:00 15:00 23:00 07:00 15:00 23:00 Intake Total 360 ml 480 ml 2190 ml Output Total 850 ml Balance 360 ml 480 ml 1340 ml Intake Oral 360 ml 480 ml 2190 ml Output Urine Total 850 ml # Voids 3 4 2 # Bowel Movements 0 0 Result Diagram: 04/16/16 0533 04/16/16 0533 Imaging Last 72 hours Impressions Wrist X-Ray 04/15/16 0000 Signed Impressions: Service Date/Time: Friday, April 15, 2016 16:49 - CONCLUSION: Comminuted fracture of the distal radius. Jhonny Mcneill MD Tibia/Fibula X-Ray 04/15/16 0000 Signed Impressions: Service Date/Time: Friday, April 15, 2016 16:39 - CONCLUSION: 1. Definite mid fibular fracture. 2. Questionable proximal tibial fracture. This could be further evaluated with a CT examination. Jhonny Mcneill MD Knee X-Ray 04/15/16 0000 Signed Impressions: Service Date/Time: Friday, April 15, 2016 16:37 - CONCLUSION: No acute abnormality is seen. Jhonny Mcneill MD Head CT 04/15/16 0000 Signed Impressions: Service Date/Time: Friday, April 15, 2016 16:56 - CONCLUSION: 1. No acute intracranial abnormality. 2. Fracturing of the medial aspect of the right maxilla with a foreign metallic density within the right maxilla. 3. Increased density seen throughout the right maxillary sinus and in the right ethmoid air cells. Jhonny Mcneill MD Chest CT 04/15/16 0000 Signed Impressions: Service Date/Time: Friday, April 15, 2016 17:01 - CONCLUSION: Left-sided rib fractures. Jhonny Mcneill MD Cervical Spine CT 04/15/16 Signed Impressions: Service Date/Time: Friday, April 15, 2016 17:01 - CONCLUSION: Small bony fragment seen posterior to the C7 spinous process. Fracture in this region can have this appearance. However, the posterior aspect of the main portion of the C7 spinous process appears well-corticated suggesting this is likely chronic. The remaining aspects of the cervical spine are negative. Jhonny Mcneill MD Ankle X-Ray 04/15/16 Signed Impressions: Service Date/Time: Friday, April 15, 2016 20:04 - CONCLUSION: No definite fracture is seen although there is a small bony density seen immediately posterior to the talus which could represent pre-existing hypertrophic change versus a minimal area of fracturing. Jhonny Mcneill MD Abdomen/Pelvis CT 04/15/16 Signed Impressions: Service Date/Time: Friday, April 15, 2016 17:01 - CONCLUSION: No acute intra-abdominal or pelvic abnormality seen. Jhonny Mcneill MD Objective Remarks RUE: +sugar tong splint. intact. NVI with good motion of fingers LLE: full motion. no pain. NVI RLE: noted bruising on posterior thigh. slightly tender to touch. NVI distally Assessment & Plan Assessment and Plan 1-Comminuted right distal radius fracture s/p ORIF - POD 3 Maintain splint and nonweightbearing Sling when out of bed 2-left midshaft fibula fracture - nonop Weightbearing as tolerated left lower extremity 3-Right thigh contusion -WBAT BLE -NWB right arm -ortho cleared for DC f/u ortho 2 weeks Delgado You Apr 19, 2016 06:53
--- NOTE | 2016-04-19 06:57 | PD.ORT.PN ---
Subjective Subjective Remarks Pain controlled. His ribs are continuing to bother him Objective Vitals Vital Signs Date Time Temp Pulse Resp B/P Pulse Ox O2 Delivery O2 Flow Rate FiO2 04/19/16 00:25 98.4 89 18 144/63 92 04/18/16 20:40 96.2 96 18 127/58 95 04/18/16 19:28 Room Air 04/18/16 16:00 97.8 82 18 130/62 95 04/18/16 12:00 98.0 84 17 140/72 94 04/18/16 08:00 97.9 84 18 131/59 94 I/O 04/18/16 04/18/16 04/18/16 04/19/16 04/19/16 04/19/16 07:00 15:00 23:00 07:00 15:00 23:00 Intake Total 360 ml 480 ml 2190 ml Output Total 850 ml Balance 360 ml 480 ml 1340 ml Intake Oral 360 ml 480 ml 2190 ml Output Urine Total 850 ml # Voids 3 4 2 # Bowel Movements 0 0 Result Diagram: 04/16/16 0533 04/16/16 0533 Imaging Last 72 hours Impressions Wrist X-Ray 04/15/16 0000 Signed Impressions: Service Date/Time: Friday, April 15, 2016 16:49 - CONCLUSION: Comminuted fracture of the distal radius. Jhonny Mcneill MD Tibia/Fibula X-Ray 04/15/16 0000 Signed Impressions: Service Date/Time: Friday, April 15, 2016 16:39 - CONCLUSION: 1. Definite mid fibular fracture. 2. Questionable proximal tibial fracture. This could be further evaluated with a CT examination. Jhonny Mcneill MD Knee X-Ray 04/15/16 0000 Signed Impressions: Service Date/Time: Friday, April 15, 2016 16:37 - CONCLUSION: No acute abnormality is seen. Jhonny Mcneill MD Head CT 04/15/16 0000 Signed Impressions: Service Date/Time: Friday, April 15, 2016 16:56 - CONCLUSION: 1. No acute intracranial abnormality. 2. Fracturing of the medial aspect of the right maxilla with a foreign metallic density within the right maxilla. 3. Increased density seen throughout the right maxillary sinus and in the right ethmoid air cells. Jhonny Mcneill MD Chest CT 1/21/17 0000 Signed Impressions: Service Date/Time: Friday, April 15, 2016 17:01 - CONCLUSION: Left-sided rib fractures. Jhonny Mcneill MD Cervical Spine CT 04/15/16 Signed Impressions: Service Date/Time: Friday, April 15, 2016 17:01 - CONCLUSION: Small bony fragment seen posterior to the C7 spinous process. Fracture in this region can have this appearance. However, the posterior aspect of the main portion of the C7 spinous process appears well-corticated suggesting this is likely chronic. The remaining aspects of the cervical spine are negative. Jhonny Mcneill MD Ankle X-Ray 04/15/16 Signed Impressions: Service Date/Time: Friday, April 15, 2016 20:04 - CONCLUSION: No definite fracture is seen although there is a small bony density seen immediately posterior to the talus which could represent pre-existing hypertrophic change versus a minimal area of fracturing. Jhonny Mcneill MD Abdomen/Pelvis CT 04/15/16 Signed Impressions: Service Date/Time: Friday, April 15, 2016 17:01 - CONCLUSION: No acute intra-abdominal or pelvic abnormality seen. Jhonny Mcneill MD Objective Remarks RUE: +sugar tong splint. intact. NVI with good motion of fingers LLE: full motion. no pain. NVI RLE: noted bruising on posterior thigh. slightly tender to touch. NVI distally Assessment & Plan Assessment and Plan 1-Comminuted right distal radius fracture s/p ORIF - POD 4 Maintain splint and nonweightbearing Sling when out of bed 2-left midshaft fibula fracture - nonop Weightbearing as tolerated left lower extremity 3-Right thigh contusion -WBAT BLE -NWB right arm -ortho cleared for DC f/u ortho 2 weeks SORAYA MCGREGOR PA-C Apr 19, 2016 06:57
[2016-04-19 08:00] VITALS: BP 126/68; PULSE 81; RESP 16; TEMP 95.9; O2SAT 97
[2016-04-19] MEDS ORDERED: MAGNESIUM CITRATE SOLN 300 ML BTL PO ONE (08:45)
[2016-04-19] MEDS: BACITRACIN TOP OINT 15 GM TUBE TOP SCH ×2 (09:00→21:04)
[2016-04-19] MEDS: LORATADINE 10 MG TAB PO SCH (09:33)
[2016-04-19] MEDS: GABAPENTIN 300 MG CAP PO SCH ×3 (09:33→17:16)
[2016-04-19] MEDS: metFORMIN HCL 500 MG TAB PO SCH ×2 (09:34→17:16)
[2016-04-19] MEDS: DOCUSATE SODIUM 50 MG/SENNA 8.6 MG TAB PO SCH ×2 (09:34→21:03)
[2016-04-19 12:00] VITALS: BP 124/68; PULSE 105; RESP 16; TEMP 96.2; O2SAT 94
[2016-04-19] MEDS ORDERED: LACTULOSE SYRUP 20 GM/30 ML CUP PO PRN (15:15)
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
[2016-04-19 15:34] VITALS: BP 120/54; PULSE 97; RESP 17; TEMP 95.6; O2SAT 93
[2016-04-19] MEDS: ENOXAPARIN SODIUM 40 MG/0.4 ML SYRINGE SQ SCH (17:16)
[2016-04-19] MEDS: MAGNESIUM HYDROXIDE SUSP 30 ML CUP PO PRN (17:17)
[2016-04-19 20:00] VITALS: BP 147/60; PULSE 105; RESP 22; TEMP 99; O2SAT 95
[2016-04-19] MEDS: PANTOPRAZOLE SOD 40 MG DELAYED RELEASE TAB PO SCH (21:03)
[2016-04-19] MEDS: LISINOPRIL 20 MG TAB PO SCH (21:03)
[2016-04-19] MEDS: HYDROCHLOROTHIAZIDE 25 MG TAB PO SCH (21:03)
[2016-04-20] VITALS: BP 148/76; PULSE 105; RESP 22; TEMP 99.6; O2SAT 95
[2016-04-20] MEDS: ACETAMINOPHEN/HYDROcodone 325 MG/5 MG TAB PO PRN ×3 (02:43→13:55)
[2016-04-20] MEDS: CYCLOBENZAPRINE HCL 10 MG TAB PO SCH ×2 (06:30→13:54)
[2016-04-20] MEDS: INSULIN NovoLIN REGULAR SUPPLEMENTAL SCALE SQ SCH ×2 (06:30→12:15)
[2016-04-20] MEDS ORDERED: XARE10TA PO (06:46)
--- NOTE | 2016-04-20 06:47 | PD.ORT.PN ---
Subjective Subjective Remarks Pain controlled. His ribs are continuing to bother him Objective Vitals Vital Signs Date Time Temp Pulse Resp B/P Pulse Ox O2 Delivery O2 Flow Rate FiO2 04/20/16 00:00 99.6 105 22 148/76 95 04/19/16 20:00 99.0 105 22 147/60 95 04/19/16 15:34 95.6 97 17 120/54 93 04/19/16 12:00 96.2 105 16 124/68 94 04/19/16 09:25 Room Air 04/19/16 08:00 95.9 81 16 126/68 97 I/O 04/19/16 04/19/16 04/19/16 04/20/16 04/20/16 04/20/16 07:00 15:00 23:00 07:00 15:00 23:00 Intake Total 2190 ml 480 ml 520 ml 240 ml Output Total 850 ml 1000 ml 800 ml Balance 1340 ml 480 ml -480 ml -560 ml Intake Oral 2190 ml 480 ml 520 ml 240 ml Output Urine Total 850 ml 1000 ml 800 ml # Voids 2 2 1 # Bowel Movements 0 0 3 Result Diagram: 04/16/16 0533 04/16/16 0533 Imaging Last 72 hours Impressions Wrist X-Ray 04/15/16 0000 Signed Impressions: Service Date/Time: Friday, April 15, 2016 16:49 - CONCLUSION: Comminuted fracture of the distal radius. Jhonny Mcneill MD Tibia/Fibula X-Ray 04/15/16 0000 Signed Impressions: Service Date/Time: Friday, April 15, 2016 16:39 - CONCLUSION: 1. Definite mid fibular fracture. 2. Questionable proximal tibial fracture. This could be further evaluated with a CT examination. Jhonny Mcneill MD Knee X-Ray 04/15/16 0000 Signed Impressions: Service Date/Time: Friday, April 15, 2016 16:37 - CONCLUSION: No acute abnormality is seen. Jhonny Mcneill MD Head CT 04/15/16 0000 Signed Impressions: Service Date/Time: Friday, April 15, 2016 16:56 - CONCLUSION: 1. No acute intracranial abnormality. 2. Fracturing of the medial aspect of the right maxilla with a foreign metallic density within the right maxilla. 3. Increased density seen throughout the right maxillary sinus and in the right ethmoid air cells. Jhonny Mcneill MD Chest CT 04/15/16 0000 Signed Impressions: Service Date/Time: Friday, April 15, 2016 17:01 - CONCLUSION: Left-sided rib fractures. Jhonny Mcneill MD Cervical Spine CT 04/15/16 0000 Signed Impressions: Service Date/Time: Friday, April 15, 2016 17:01 - CONCLUSION: Small bony fragment seen posterior to the C7 spinous process. Fracture in this region can have this appearance. However, the posterior aspect of the main portion of the C7 spinous process appears well-corticated suggesting this is likely chronic. The remaining aspects of the cervical spine are negative. Jhonny Mcneill MD Ankle X-Ray 04/15/16 0000 Signed Impressions: Service Date/Time: Friday, April 15, 2016 20:04 - CONCLUSION: No definite fracture is seen although there is a small bony density seen immediately posterior to the talus which could represent pre-existing hypertrophic change versus a minimal area of fracturing. Jhonny Mcneill MD Abdomen/Pelvis CT 04/15/16 Signed Impressions: Service Date/Time: Friday, April 15, 2016 17:01 - CONCLUSION: No acute intra-abdominal or pelvic abnormality seen. Jhonny Mcneill MD Objective Remarks RUE: +sugar tong splint. intact. NVI with good motion of fingers LLE: full motion. no pain. NVI RLE: noted bruising on posterior thigh. slightly tender to touch. NVI distally Assessment & Plan Assessment and Plan 1-Comminuted right distal radius fracture s/p ORIF - POD 5 Maintain splint and nonweightbearing Sling when out of bed 2-left midshaft fibula fracture - nonop Weightbearing as tolerated left lower extremity 3-Right thigh contusion -WBAT BLE -NWB right arm -ortho cleared for DC f/u ortho 2 weeks SORAYA MCGREGOR PA-C Apr 20, 2016 06:47
[2016-04-20 08:00] VITALS: BP 121/67; PULSE 85; RESP 16; TEMP 97.9; O2SAT 96
[2016-04-20] MEDS: metFORMIN HCL 500 MG TAB PO SCH (08:16)
[2016-04-20] MEDS: GABAPENTIN 300 MG CAP PO SCH ×2 (08:16→13:54)
[2016-04-20] MEDS: LORATADINE 10 MG TAB PO SCH (08:16)
[2016-04-20] MEDS: DOCUSATE SODIUM 50 MG/SENNA 8.6 MG TAB PO SCH (08:18)
[2016-04-20] MEDS: BACITRACIN TOP OINT 15 GM TUBE TOP SCH (08:19)
[2016-04-20] MEDS: SODIUM CHLORIDE 0.9% FLUSH 5 ML FLUSH IVF PRN (08:19)
[2016-04-20] MEDS ORDERED: MAGNESIUM HYDROXIDE SUSP 30 ML CUP PO SCH (09:00)
[2016-04-20 12:00] VITALS: BP 129/63; PULSE 91; RESP 16; TEMP 95.4; O2SAT 96
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
[2016-04-24] MEDS ORDERED: METF1000 PO (12:03)
[2016-04-24] MEDS ORDERED: CIPR-9 PO (12:03)
[2016-04-24] MEDS ORDERED: LISI20TA3 PO (12:03)
[2016-04-24] MEDS ORDERED: CYCL1TAB29 PO (12:03)
[2016-04-24] MEDS ORDERED: HYDR-3366 PO (12:03)
[2016-04-24] MEDS ORDERED: SENN1TAB PO (12:03)
[2016-04-24] MEDS ORDERED: NEUR300C PO (12:03)
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
== END 2016-04-20 15:09 | DRG 511 ==
LOC: NEPE 16:02 → NEDA 18:07 → N06B 20:56
PROVIDERS: ADMIT Surgery; ATTEND Surgery
PROC: 0HQ0XZZ Repair Scalp Skin, External Approach (ICD-10-PCS; 2016-04-15)
PROC: 0PSH04Z Reposition Right Radius with Internal Fixation Device, Open Approach (ICD-10-PCS; principal; 2016-04-16 09:41)
DX: S52.571A Other intraarticular fracture of lower end of right radius, initial encounter for closed fracture (principal); S22.42XA Multiple fractures of ribs, left side, initial encounter for closed fracture; S82.402A Unspecified fracture of shaft of left fibula, initial encounter for closed fracture; S01.01XA Laceration without foreign body of scalp, initial encounter; I10 Essential (primary) hypertension; S70.11XA Contusion of right thigh, initial encounter; V23.4XXA Motorcycle driver injured in collision with car, pick-up truck or van in traffic accident, initial encounter; Y93.89 Activity, other specified; Y92.410 Unspecified street and highway as the place of occurrence of the external cause; K21.9 Gastro-esophageal reflux disease without esophagitis; Z72.0 Tobacco use; E11.9 Type 2 diabetes mellitus without complications; Z79.84 Long term (current) use of oral hypoglycemic drugs; G47.30 Sleep apnea, unspecified
CPT/HCPCS: 12001; 70450; 71260; 72125; 73100; 73564; 73590; 73610; 74177; 76000; 80048; 82948; 85025; 94150; 96361; 96374; 96375; C1713; C9113; J0131; J0690; J1170; J1580; J1650; J2250; J2270; J2405; J2710; J3010; J3370; J7030; Q9967